=== PATIENT | male | born 1940 | race Caucasian/White ===

== ENCOUNTER 2018-03-17 06:23 | Day surgery (SDC) | payer MEDICARE, OTHER ==
[2018-03-17] MEDS ORDERED: ROPIVACAINE 0.5 % 30 ML VIAL ×2 (07:28→07:29)
[2018-03-17] MEDS ORDERED: NEOSTIGMINE 3 MG/3 ML SYRINGE (07:28)
[2018-03-17] MEDS ORDERED: SUCCINYLCHOLINE CHLORIDE 100 MG/5 ML SYG IV (07:28)
[2018-03-17] MEDS ORDERED: GLYCOPYRROLATE 0.4 MG INJ (07:28)
[2018-03-17] MEDS ORDERED: LIDOCAINE 2% (SDV) 5 ML INJ (07:28)
[2018-03-17] MEDS ORDERED: PROPOFOL 20 ML (07:28)
[2018-03-17] MEDS ORDERED: ROCURONIUM 50 MG INJ (07:28)
[2018-03-17] MEDS ORDERED: morphine 10 MG INJ IM (07:30)
[2018-03-17] MEDS ORDERED: OXYCODONE/ACETAMINOPHEN (5/325) TAB PO ×4 (07:30→10:00)
[2018-03-17] MEDS ORDERED: ONDANSETRON 4 MG INJ IV ×2 (07:30→10:00)
[2018-03-17] MEDS ORDERED: CEFAZOLIN 2 GM/50 ML (PMX) 50 ML IVPB (08:00)
[2018-03-17] MEDS ORDERED: ATROPINE 1 MG/10 ML SYRINGE (08:28)
[2018-03-17] MEDS ORDERED: CEFAZOLIN 1 GM INJ (08:58)
[2018-03-17] MEDS: EPINEPHrine 1 MG INJ (09:10)
[2018-03-17] MEDS: EPINEPHrine 1 MG/ML 30 ML INJ IRR ×2 (09:10→09:12)
[2018-03-17] MEDS ORDERED: ONDANSETRON 4 MG INJ (09:23)
[2018-03-17] MEDS ORDERED: DIPHENHYDRAMINE 50 MG INJ IV (10:00)
[2018-03-17] MEDS ORDERED: HYDROmorphONE 1 MG/5 ML IV SYRINGE IV ×3 (10:00)
[2018-03-17] MEDS ORDERED: FENTAnyl 50 MCG/ML VIAL IV ×3 (10:00)
[2018-03-17] MEDS ORDERED: METOCLOPRAMIDE 10 MG INJ IV (10:00)
[2018-03-17] MEDS ORDERED: EPHEDrine SULFATE 50 MG/5 ML SYG IV (10:00)
[2018-03-17] MEDS ORDERED: hydrALAzine 20 MG INJ IV (10:00)
[2018-03-17] MEDS ORDERED: MIDAZOLAM 1 MG/ML 2 ML INJ IV (10:00)
[2018-03-17] MEDS ORDERED: LABETALOL HCL 20MG INJ IV (10:00)
[2018-03-17] MEDS: MEPERIDINE 25 MG INJ IV (10:39)
== END 2018-03-17 12:00 | disposition home or self-care (01) ==
LOC: SDS 06:23
DX: M75.102 Unspecified rotator cuff tear or rupture of left shoulder, not specified as traumatic (principal); M75.42 Impingement syndrome of left shoulder; I10 Essential (primary) hypertension
CPT/HCPCS: 29826